=== PATIENT | female | born 1975 | race African-American/Black ===

== ENCOUNTER 2021-01-16 15:21 | Emergency (ER) | payer BC ==
[~2021-01-16] VITALS: Ht 162.6 cm; Wt 63.5 kg
[2021-01-16 15:49] LABS: URINE BILIRUBIN NEGATIVE (Negative); URINE BLOOD TRACE (Negative); URINE CLARITY CLEAR; URINE COLOR YELLOW; URINE GLUCOSE-RANDOM* NEGATIVE (Negative); URINE KETONES NEGATIVE (Negative); URINE LEUKOCYTES-REFLEX NEGATIVE (Negative); URINE NITRITE-REFLEX NEGATIVE (Negative); URINE PROTEIN (DIPSTICK) NEGATIVE (Negative); URINE SPECIFIC GRAVITY 1.025 (1.005-1.035)
[2021-01-16 15:57] LABS: ABSOLUTE NEUTROPHILS 7.7 thou/uL (1.4-8.2); BASOPHILS 0.5 % (0.0-2.0); EOSINOPHILS 3.7 % (0.0-3.0); HEMATOCRIT 33.1 % (37.0-47.0); HEMOGLOBIN 10.7 gm/dL (12.0-15.0); LYMPHOCYTES 17.2 % (24.0-44.0); MCH 23.3 pg (26.0-34.0); MCHC 32.5 g/dL (28.0-37.0); MCV 71.7 fL (80.0-100.0); PLATELET COUNT 299 thou/uL (150-400); POLYS 71.6 % (36.0-66.0); RBC 4.61 mil/uL (4.20-5.00); RDW 15.8 % (10.5-14.5); WBC 10.7 thou/uL (4.0-11.0)
[2021-01-16 16:10] LABS: ANION GAP 8 mmol/L (7-16); BUN 14 mg/dL (7-18); CHLORIDE 104 mmol/L (98-107); CO2 26 mmol/L (21-32); CREATININE 0.9 mg/dL (0.6-1.0); GLUCOSE 111 mg/dL (74-106); POTASSIUM 3.8 mmol/L (3.5-5.1); SODIUM 138 mmol/L (136-145)
[2021-01-16 16:17] LABS: ALBUMIN 3.8 g/dL (3.4-5.0); DIRECT BILIRUBIN < 0.1 mg/dL (<0.1-0.2); LIPASE 328 U/L (73-393); SGOT 25 U/L (15-37); SGPT 25 U/L (30-65); TOTAL BILIRUBIN 0.3 mg/dL (0.2-1.0); TOTAL PROTEIN 7.4 g/dL (6.4-8.2)
[2021-01-16 16:22] LABS: ANISOCYTOSIS 1+; MICROCYTES 2+; PLATELET ESTIMATE NORMAL
[2021-01-16] MEDS ORDERED: CARAFATE 1 GM TA1 G1 PO (17:19)
[2021-01-16] MEDS ORDERED: OMEPRAZOLE 20 M20 M1 PO (17:19)
[2021-01-16] MEDS ORDERED: BENTYL 10 MG CA10 M1 PO (17:19)
[2021-01-16 17:46] VITALS: BP 127/88
== END 2021-01-16 17:46 | disposition home or self-care (01) ==
LOC: ER 15:21
PROVIDERS: Nurse Practitioner
DX: R10.13 Epigastric pain (principal)

== ENCOUNTER 2021-01-21 14:24 | Inpatient (IN) | payer BC ==
[~2021-01-21] VITALS: Ht 162.6 cm; Wt 63.5 kg
[~2021-01-21 14:24] MED LIST: BENTYL 10 MG CA10 M1 PO; CARAFATE 1 GM TA1 G1 PO; OMEPRAZOLE 20 M20 M1 PO
[2021-01-21 14:29] VITALS: BP 133/89
[2021-01-21 15:21] LABS: ABSOLUTE NEUTROPHILS 4.4 thou/uL (1.4-8.2); BASOPHILS 0.7 % (0.0-2.0); EOSINOPHILS 6.6 % (0.0-3.0); LYMPHOCYTES 33.1 % (24.0-44.0); MCH 22.9 pg (26.0-34.0); MCHC 31.6 g/dL (28.0-37.0); MCV 72.3 fL (80.0-100.0); PLATELET COUNT 283 thou/uL (150-400); POLYS 53.6 % (36.0-66.0); RBC 4.83 mil/uL (4.20-5.00); RDW 15.9 % (10.5-14.5); WBC 8.1 thou/uL (4.0-11.0)
[2021-01-21 15:27] LABS: ANION GAP 8 mmol/L (7-16); BUN 17 mg/dL (7-18); CALCIUM 8.9 mg/dL (8.5-10.1); CHLORIDE 106 mmol/L (98-107); CO2 27 mmol/L (21-32); CREATININE 0.9 mg/dL (0.6-1.0); GLUCOSE 98 mg/dL (74-106); POTASSIUM 4.1 mmol/L (3.5-5.1); SODIUM 141 mmol/L (136-145)
[2021-01-21 15:33] LABS: ALBUMIN 3.9 g/dL (3.4-5.0); LIPASE 179 U/L (73-393); SGOT 21 U/L (15-37); SGPT 23 U/L (14-59); TOTAL BILIRUBIN 0.2 mg/dL (0.2-1.0); TOTAL PROTEIN 7.5 g/dL (6.4-8.2)
[2021-01-21 15:43] LABS: TARGET CELLS 1+; TEARDROPS FEW
[2021-01-21] MEDS ORDERED: HYDROCODON-ACE1 EAC7 PO (16:58)
[2021-01-21 17:00] VITALS: BP 134/90
[2021-01-21 17:55] LABS: TROPONIN-I <0.06 ng/mL (<0.06)
[2021-01-21 18:41] VITALS: BP 126/75
[2021-01-21 19:37] VITALS: BP 126/77
[2021-01-21 20:11] VITALS: BP 127/89
[2021-01-21 20:32] LABS: % SATURATION 10 % (20-39); IRON 38 ug/dL (50-170); TIBC 390 ug/dL (250-450)
--- NOTE | 2021-01-22 02:33 | NUR ---
PT ADMITTED TO THE UNIT FROM THE ED AT 1999.PT IS A/O X4.PT IS UP AD SERAFIN AND EDUCATED TO CALL FOR HELP.PT ADMITTED WITH C/O BURNING PAIN GENERALIZED ABD AND NAUSEA AND VOMITING.PT IV ACCESS ON RT AC SL.PT IS MED/SURG.PT ON MORPHINE PRN FOR PAIN MANAGEMENT AND COMPAZINE FOR NAUSEA PRN.PT IS ON ROOM AIR.WILL CONTINUE TO MONITOR PER POC
[2021-01-22 04:34] VITALS: BP 100/66
[2021-01-22 08:13] VITALS: BP 107/72
--- NOTE | 2021-01-22 14:23 | NUR ---
PT A&OX4, VSS, PAIN IN ABDOMEN AND NAUSEA NO VOMITING. PATIENT RESTING IN BED. PATIENT WANTING TO EAT AND OK BY GI. NO SIGNS OF DISTRESS. WILL CONTINUE TO MONITOR.
[2021-01-22] MEDS ORDERED: PROTONIX40 M2 PO (15:18)
[2021-01-22 15:23] VITALS: BP 107/72
--- NOTE | 2021-01-23 07:37 | EKG ---
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
== END 2021-01-22 15:34 | disposition home or self-care (01) | DRG 392 ==
LOC: ER 14:24 → EROBS 18:14 → 4W 19:37
PROVIDERS: Emergency Medicine; ADMIT Internal Medicine; ATTEND Internal Medicine
DX: R10.84 Generalized abdominal pain (principal); Z87.442 Personal history of urinary calculi; Z79.899 Other long term (current) drug therapy; Z90.710 Acquired absence of both cervix and uterus; Z87.891 Personal history of nicotine dependence
CPT/HCPCS: 10040